=== PATIENT | female | born 1955 | race African-American/Black ===

== ENCOUNTER 2021-02-15 12:41 | Emergency (ER) | payer OTHER, MEDICAID ==
[~2021-02-15] VITALS: Ht 172.7 cm; Wt 105.0 kg
[~2021-02-15 12:41] MED LIST: BENADRYL; CARISOPRODOL; HCTZ; LOVENOX; OMEPRAZOLE; TEMAZEPAM; VICODIN
[2021-02-15 12:43] VITALS: BP 135/77
[2021-02-15] MEDS ORDERED: SULF1TAB48 PO (13:30)
[2021-02-15] MEDS ORDERED: IBUP-2029 PO (13:30)
[2021-02-15] MEDS ORDERED: CEPH500T PO (13:30)
== END 2021-02-15 13:50 | disposition home or self-care (01) ==
LOC: ER 12:41
DX: L03.011 Cellulitis of right finger (principal); Z79.899 Other long term (current) drug therapy
CPT/HCPCS: 82962; 99283